=== PATIENT | male | born 1955 | race Caucasian/White ===

== ENCOUNTER 2017-09-16 13:03 | Emergency (ER) | payer OTHER ==
[~2017-09-16] VITALS: Ht 180.3 cm; Wt 192.9 kg
[2017-09-16] MEDS ORDERED: MAGNESIUM SULF/STERILE WATER 4 GM/100 ML IV BAG IV ONE (13:05)
[2017-09-16] MEDS ORDERED: EPINEPHrine 1:10,000 [1 MG/10 ML] SYRINGE IVP ONE ×2 (13:05)
[2017-09-16] MEDS ORDERED: ATROPINE SULFATE 0.1 MG/ML 10 ML SYRINGE IVP ONE (13:05)
[2017-09-16] MEDS ORDERED: AMIODARONE HCL 50 MG/ML 3 ML VIAL IVP ONE (13:05)
[2017-09-16] MEDS ORDERED: 0.9% SODIUM CHLORIDE 250 ML BAG IV ONE (13:05)
[2017-09-16 13:28] VITALS: BP 70/38
== END 2017-09-16 14:43 | disposition expired ==
LOC: EMS 13:04
DX: I46.9 Cardiac arrest, cause unspecified (principal); E03.9 Hypothyroidism, unspecified; I25.2 Old myocardial infarction; E66.01 Morbid (severe) obesity due to excess calories; Z68.43 Body mass index [BMI] 50.0-59.9, adult
CPT/HCPCS: 31500; 92950; 99291; J0171; J0282; J0461; J3475; J7050